=== PATIENT | female | born 1960 | race Hispanic/Latino ===

== ENCOUNTER 2017-02-01 11:40 | Outpatient (CLI) | payer OTHER | END 2017-02-01 11:54 | disposition short-term general hospital (02) | LOC: AMB 11:40 | DX: E11.641 Type 2 diabetes mellitus with hypoglycemia with coma (principal) | CPT/HCPCS: A0425; A0427 ==

== ENCOUNTER 2017-02-01 11:57 | Emergency (ER) | payer OTHER ==
[~2017-02-01] VITALS: Ht 162.6 cm; Wt 116.6 kg
[2017-02-01 12:34] LABS: PLATELET COUNT 205 K/uL (152-353)
[2017-02-01 13:03] LABS: POTASSIUM 3.9 mmol/L (3.6-5.2)
== END 2017-02-01 14:22 | disposition home or self-care (01) ==
LOC: ED 11:57
DX: E11.649 Type 2 diabetes mellitus with hypoglycemia without coma (principal); N18.6 End stage renal disease; Z99.2 Dependence on renal dialysis
CPT/HCPCS: 36415; 80053; 85027; 99284

== ENCOUNTER 2017-06-29 21:21 | Emergency (ER) | payer OTHER ==
[~2017-06-29] VITALS: Ht 165.1 cm; Wt 112.5 kg
[2017-06-29 22:07] LABS: PLATELET COUNT 203 K/uL (152-353)
[2017-06-29 22:26] LABS: PARTIAL THROMBOPLASTIN TIME 23.4 SECONDS (24.5-33.6)
[2017-06-29 23:39] VITALS: BP 110/54; TEMP 98
[2017-06-30] MEDS ORDERED: TRESIBA FL200 UNIT/M SC ×2 (04:34→04:35)
[2017-06-30] MEDS ORDERED: COMBIGAN0.2 MG/0.5 OPTH (04:34)
[2017-06-30] MEDS ORDERED: RENVELA800 MG PO (04:37)
[2017-06-30] MEDS ORDERED: LABETALOL100 MG PO (04:38)
[2017-06-30] MEDS ORDERED: AMBIEN5 MG PO (04:38)
[2017-06-30] MEDS ORDERED: CLOPIDOGREL75 MG PO (04:40)
[2017-06-30] MEDS ORDERED: PANTOPRAZOLE 40MG TA PO (04:40)
[2017-06-30] MEDS ORDERED: ASPIRIN ADULT L81 M2 PO (04:42)
[2017-06-30] MEDS ORDERED: SERT100T PO (04:43)
[2017-06-30] MEDS ORDERED: DOK100 MG PO (04:45)
[2017-06-30] MEDS ORDERED: [UNRECOGNIZED DRUG - OTHER] PO (04:46)
[2017-06-30] MEDS ORDERED: VITAMIN D PO (04:48)
== END 2017-06-29 23:42 | disposition home or self-care (01) ==
LOC: ED 21:21
PROVIDERS: Specialist
DX: T82.838A Hemorrhage due to vascular prosthetic devices, implants and grafts, initial encounter (principal)
CPT/HCPCS: 36415; 85027; 85610; 85730; 99283

== ENCOUNTER 2017-06-30 00:57 | Observation (INO) | payer OTHER ==
[~2017-06-30] VITALS: Ht 165.1 cm; Wt 114.3 kg
[2017-06-30] VITALS (10 sets, daily range): BP systolic 94–156; BP diastolic 50–68; TEMP 98.4–98.6; Ht 165.1 cm; Wt 114.3 kg
[2017-06-30 03:31] LABS: POTASSIUM 3.1 mmol/L (3.6-5.2)
[2017-06-30] MEDS ORDERED: TRESIBA FL200 UNIT/M SC ×2 (04:34→04:35)
[2017-06-30] MEDS ORDERED: COMBIGAN0.2 MG/0.5 OPTH (04:34)
[2017-06-30] MEDS ORDERED: RENVELA800 MG PO (04:37)
[2017-06-30] MEDS ORDERED: AMBIEN5 MG PO (04:38)
[2017-06-30] MEDS ORDERED: LABETALOL100 MG PO (04:38)
[2017-06-30] MEDS ORDERED: PANTOPRAZOLE 40MG TA PO (04:40)
[2017-06-30] MEDS ORDERED: CLOPIDOGREL75 MG PO (04:40)
[2017-06-30] MEDS ORDERED: ASPIRIN ADULT L81 M2 PO (04:42)
[2017-06-30] MEDS ORDERED: SERT100T PO (04:43)
[2017-06-30] MEDS ORDERED: DOK100 MG PO (04:45)
[2017-06-30] MEDS ORDERED: [UNRECOGNIZED DRUG - OTHER] PO (04:46)
[2017-06-30] MEDS ORDERED: VITAMIN D PO (04:48)
== END 2017-06-30 09:30 | disposition short-term general hospital (02) ==
LOC: ED 00:57 → MED/SURG 04:47
PROVIDERS: ADMIT Specialist
DX: T82.838A Hemorrhage due to vascular prosthetic devices, implants and grafts, initial encounter (principal); Y84.8 Other medical procedures as the cause of abnormal reaction of the patient, or of later complication, without mention of misadventure at the time of the procedure; Y92.89 Other specified places as the place of occurrence of the external cause; R55 Syncope and collapse; I12.0 Hypertensive chronic kidney disease with stage 5 chronic kidney disease or end stage renal disease; N18.6 End stage renal disease; Z99.2 Dependence on renal dialysis; H54.8 Legal blindness, as defined in USA; K21.9 Gastro-esophageal reflux disease without esophagitis; R06.02 Shortness of breath
CPT/HCPCS: 36415; 36600; 80048; 82550; 82553; 82805; 83605; 83880; 84484; 99220; 99284; G0378